=== PATIENT | female | born 1995 | race Asian ===

== ENCOUNTER 2022-12-18 00:30 | Emergency (ER) | payer OTHER ==
[~2022-12-18] VITALS: Ht 165.1 cm; Wt 79.4 kg
[2022-12-18 00:35] VITALS: BP 104/71
--- NOTE | 2022-12-18 00:35 | NUR ---
to bed via wheelchair
--- NOTE | 2022-12-18 01:01 | NUR ---
PT IS HERE FOR EVALUATING HER EPIGASTRIC PAIN 07/23. PT IS ALERT ORIENTED X4. PT IS AMBULATORY AND ROOM AIR.
[2022-12-18] MEDS ORDERED: DICYCLOMINE HCL LIQUID 20 MG, ALUMINUM HYD/MAG/SIMETHICONE 30 ML, LIDOCAINE VISCOUS 2% ... PO ONE ×3 (01:25)
[2022-12-18] MEDS ORDERED: KETOROLAC 15 MG/ML VIAL IVP ONE (01:25)
[2022-12-18] MEDS ORDERED: NACL 0.9% 1,000 ML IV ONE ×3 (01:25→05:50)
[2022-12-18 01:39] LABS: BASOPHILS # (AUTO) 0.1 K/uL (0.00-0.22); BASOPHILS % (AUTO) 0.5 % (0.0-2.0); EOSINOPHILS # (AUTO) 0.2 K/uL (0-0.4); EOSINOPHILS % (AUTO) 0.6 % (0.0-4.0); HEMATOCRIT 41.6 % (36-48); HEMOGLOBIN 16.9 g/dL (12.0-16.0); LYMPHOCYTES # (AUTO) 2.1 K/uL (2.5-16.5); LYMPHOCYTES % (AUTO) 8.3 % (20.5-51.1); MEAN CORPUSCULAR HEMOGLOBIN 33 pg (27-31); MEAN CORPUSCULAR HGB CONC 41 g/dL (33-37); MEAN CORPUSCULAR VOLUME 81.4 fL (80-94); MONOCYTES # (AUTO) 0.9 K/uL (0.8-1.0); MONOCYTES % (AUTO) 3.6 % (1.7-9.3); NEUTROPHILS # (AUTO) 21.8 K/uL (1.8-7.7); PLATELET COUNT (AUTO) 322 K/uL (140-450); RED BLOOD CELL COUNT(AUTO) 5.12 MIL/uL (4.20-5.40); RED CELL DISTRIBUTION WIDTH 12.4 % (11.6-13.7)
[2022-12-18] MEDS ORDERED: DICYCLOMINE HCL LIQUID 10 MG/5 ML UDC ONE (01:44)
[2022-12-18] MEDS ORDERED: ALUMINUM HYD/MAG/SIMETHICONE 30 ML UDC ONE (01:44)
[2022-12-18 01:48] LABS: WHITE BLOOD COUNT (AUTO) 25.1 K/uL (4.8-10.8)
[2022-12-18 01:53] LABS: ALBUMIN 3.9 g/dL (3.4-5.0); ANION GAP 7.6 (8-16); CARBON DIOXIDE 30.9 mmol/L (21-32); CHLORIDE 96 mmol/L (98-107); CREATININE 0.7 mg/dL (0.6-1.3); GFR ARICAN-AMERICAN 128 mL/min (>90); GLUCOSE 205 mg/dL (74-106); LIPASE 2916 U/L (73-393); POTASSIUM 3.5 mmol/L (3.5-5.1); SODIUM SERUM 131 mmol/L (136-145); TOTAL BILIRUBIN 1.1 mg/dL (0.0-1.0); UREA NITROGEN, BLOOD 13 mg/dL (7-18)
[2022-12-18 01:57] LABS: APPEARANCE,URINE SL CLOUDY (CLEAR); BILIRUBIN,URINE NEGATIVE (NEGATIVE); BLOOD, URINE NEGATIVE (NEGATIVE); COLOR,URINE YELLOW (YELLOW); LEUKOCYTE ESTERASE ,URINE 1+ (NEGATIVE); NITRITE, URINE NEGATIVE (NEGATIVE); PH,URINE 6.5 (5.0-9.0); UGLUCOSE NEGATIVE (NEGATIVE)
[2022-12-18 02:06] LABS: RBC,URINE 0-5 /HPF (0-5)
[2022-12-18] MEDS ORDERED: MORPHINE SULFATE 2 MG/ML SYR IVP STA (03:05)
[2022-12-18] MEDS ORDERED: PIPERACILLIN/TAZOBACTAM 3.375 GM in DEXTROSE 5% 50 ML IV ONE (03:20)
[2022-12-18] MEDS ORDERED: CALCIUM GLUC 1 GM/50 mL NS BAG 50 ML IV ONE (03:20)
[2022-12-18] MEDS ORDERED: PIPERACILLIN/TAZOBACTAM 3.375 GM VIAL IV ONE (03:47)
--- NOTE | 2022-12-18 04:00 | NUR ---
PT IS RESTING ON THE BED.
--- NOTE | 2022-12-18 05:30 | NUR ---
PT CLAIMED SHE FEELS BETTER. PAIN HAS GONE DOWN.
--- NOTE | 2022-12-18 06:00 | NUR ---
THE CONTACTED PERSON NAME ADDIE CALLED. INFORMATION WAS GIVEN.
--- NOTE | 2022-12-18 07:30 | NUR ---
ASSUMED PATIENT CARE, CONCUR WITH PRIOR NURSING ASSESSMENTS. CURRENTLY WAITING TRANSFER TRANSPORTATION TO [facility].
--- NOTE | 2022-12-18 09:28 | NUR ---
PATIENT CARE REPORT GIVEN TO PARESH FROM [facility], CONTINUITY OF CARE ENDORSED ACCORDINGLY. [phone]
--- NOTE | 2022-12-18 09:59 | NUR ---
[facility] AT BEDSIDE
[2022-12-18 10:03] VITALS: BP 124/69
--- NOTE | 2022-12-18 10:05 | NUR ---
DISPO AND MEDICAL DECISION TRANSFER TO [facility] FOR FURTHER MANAGEMENT OF PANCREATITIS. PICKED UP BY [facility].
== END 2022-12-18 10:03 | disposition short-term general hospital (02) ==
LOC: MED 00:30
DX: K85.90 Acute pancreatitis without necrosis or infection, unspecified (principal); Z20.822 Contact with and (suspected) exposure to COVID-19; E87.6 Hypokalemia; Z79.899 Other long term (current) drug therapy
CPT/HCPCS: 36415; 74176; 80053; 81001; 81025; 83605; 83690; 84703; 85025; 87040; 87086; 87426; 96361; 96365; 96375; 99285; J0610; J1885; J2270; J2543; J7030